=== PATIENT | female | born 1975 | race Caucasian/White ===

== ENCOUNTER 2018-11-20 20:39 | Emergency (ER) | payer SELFPAY ==
[~2018-11-20] VITALS: Ht 162.6 cm; Wt 68.0 kg
[~2018-11-20 20:39] MED LIST: ALBU8.5H8 INH; AZIT250T PO; D-ME118S6 PO; DOCU-144 PO; HYDR-4011 PO; IBUP800T48 PO; ONDA4TAB14 PO
[2018-11-20 20:40] VITALS: Ht 162.6 cm; Wt 68.0 kg
[2018-11-20] MEDS ORDERED: morphine 4 MG/ML VIAL IM STA (23:03)
[2018-11-20] MEDS ORDERED: ONDANSETRON (ODT) 4 MG TAB ODT STA (23:03)
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
[2018-11-21 01:49] VITALS: BP 154/98; PULSE 69; RESP 19
== END 2018-11-21 01:51 | disposition home or self-care (01) ==
LOC: FTE 20:39
DX: S29.012A Strain of muscle and tendon of back wall of thorax, initial encounter (principal); M94.0 Chondrocostal junction syndrome [Tietze]; J45.909 Unspecified asthma, uncomplicated; V49.40XA Driver injured in collision with unspecified motor vehicles in traffic accident, initial encounter
CPT/HCPCS: 71046; 72072; 81003; 81025; 96372; 99284; J2270